=== PATIENT | female | born 2000 | race Caucasian/White ===

== ENCOUNTER 2021-12-12 12:28 | Outpatient (CLI) | payer BC, SELFPAY ==
--- NOTE | ~2021-12-12 | US_ITS ---
EXAMINATION: US FNA w image guidance DATE: 12/12/2021 13:50 INDICATION: Nontoxic single thyroid nodule TECHNIQUE: A time-out was performed to verify the patient's name, date of , and procedure to be performed . The procedure and its benefits and risks were discussed with the patient. Risks specifically discus sed included bleeding and infection. The patient understood the risks and agreed to proceed. The neck was prepped and draped in the usual sterile manner. 3 mL 1% lidocaine was used for local anesthesia . 6 passes were made with a 25G needle into the lesion. Appropriate needle location was documented with continuous sonographic guidance. A sterile bandage was applied. There were no immediate compli cations. FINDINGS: Grayscale ultrasound images demonstrate biopsy needles advanced into a 1.9 cm solid hypoechoic nodule with slightly lobular margins and couple punctate internal echogenic foci consistent with a TI RADS 5 nodule. IMPRESSION: 1. Successful ultrasound-guided fine needle aspiration of a 1.9 cm TI-RADS 5 left thyroid nodule. Reviewed, dictated and finalized at location A. IMPRESSION: 1. Successful ultrasound-guided fine needle aspiration of a 1.9 cm TI-RADS 5 l eft thyroid nodule.
== END 2021-12-12 12:29 | disposition home or self-care (01) ==
PROVIDERS: PCP Family Medicine; Visit Provider Internal Medicine Endocrinology, Diabetes & Metabolism
DX: E04.1 Nontoxic single thyroid nodule (principal)
CPT/HCPCS: 10005; 88173; 88305

== ENCOUNTER → 2022-03-10 10:57 | Outpatient (CLI) | payer BC, SELFPAY ==
--- NOTE | ~2022-03-10 | US_ITS ---
Pelvic ultrasound. Clinical History: Irregular menstruation Technique: Realtime transabdominal and transvaginal scanning of the pelvis was performed. Findings: The uterus is anteverted. The endometrial stripe has a thickness of 8 mm. No focal myometr ial mass is identified. Cervical nabothian cysts noted. The right ovary measures 3.0 x 2.6 x 1.6 cm. No significant right ovarian or adnexal mass is seen. The left ovary measures 2.6 x 3.2 x 2.2 cm. No significant left ovarian or adnexal mass is seen. Both ovaries demonstrate small follicular cysts with somewhat peripheral distributed. There is no evidence of free fluid in the cul de sac. Impression: Morphologic findings of the ovaries raise the possibility of polycystic ovarian syndrome. Correlate c linically. Reviewed, dictated and finalized at location [] ATIONS DEVELOPER Impression: Morphologic findings of the ovaries raise the possibility of polycystic ovarian syndrome. Correlate clinically.
== END ==
PROVIDERS: PCP Nurse Practitioner; Visit Provider Nurse Practitioner
DX: N92.6 Irregular menstruation, unspecified (principal); N88.8 Other specified noninflammatory disorders of cervix uteri
CPT/HCPCS: 76830